=== PATIENT | male | born 1995 | race African-American/Black ===

== ENCOUNTER 2022-09-09 18:24 | Emergency (ER) | payer BC ==
[~2022-09-09] VITALS: Ht 180.3 cm; Wt 110.0 kg
[2022-09-09 20:23] LABS: CLARITY URINE CLEAR (CLEAR); COLOR URINE YELLOW (YELLOW); KETONES URINE NEGATIVE (NEGATIVE); LEUKOCYTE ESTERASE URINE NEGATIVE (NEGATIVE); NITRITE URINE NEGATIVE (NEGATIVE); OCCULT BLOOD URINE NEGATIVE (NEGATIVE); PH URINE 6.5 (4.5-8.0); PROTEIN URINE NEGATIVE (NEGATIVE); SPECIFIC GRAVITY URINE 1.014 (1.005-1.030)
[2022-09-09] MEDS ORDERED: IBUP-2029 MT (22:00)
[2022-09-09 22:05] VITALS: BP 120/66
== END 2022-09-09 22:15 | disposition home or self-care (01) ==
LOC: ER 18:24
DX: N34.2 Other urethritis (principal)
CPT/HCPCS: 81003; 99283